=== PATIENT | male | born 1990 | race Hispanic/Latino ===

== ENCOUNTER 2016-10-24 18:31 | Emergency (ER) | payer OTHER ==
[~2016-10-24] VITALS: Ht 167.6 cm; Wt 90.1 kg
[2016-10-24] MEDS ORDERED: AUGMENTIN500 MG PO (21:55)
[2016-10-24] MEDS ORDERED: NORCO 5/3251 TABLET PO (21:55)
[2016-10-24 22:18] VITALS: BP 120/66
== END 2016-10-24 22:19 | disposition home or self-care (01) ==
LOC: EME 18:31
DX: S09.90XA Unspecified injury of head, initial encounter (principal); S02.92XA Unspecified fracture of facial bones, initial encounter for closed fracture; M25.532 Pain in left wrist; V44.5XXA Car driver injured in collision with heavy transport vehicle or bus in traffic accident, initial encounter
CPT/HCPCS: 70450; 70486; 71020; 72125; 73110; 99281; 99284